=== PATIENT | female | born 1950 | race Caucasian/White ===

== ENCOUNTER 2018-06-19 09:20 | Emergency (ER) | payer MEDICARE, BC ==
--- NOTE | 2018-06-19 09:32 | EDM.PDOC ---
ED HPI GENERAL MEDICAL PROBLEM - General Chief Complaint: Neuro Symptoms/Deficits Stated Complaint: FROM CLINIC Time Seen by Provider: 06/19/18 09:32 Source of Information: Reports: Patient, Old Records, RN, RN Notes Reviewed History Limitations: Reports: No Limitations - History of Present Illness INITIAL COMMENTS - FREE TEXT/NARRATIVE: Pt sent from clinic by Lisa RUELAS for evaluation of possible stroke vs Rivera's Palsy to right face. Pt states she was well when she went to bed last night, and woke with the corner of the Rt side of the mouth drooping. She reports a slight numbness to the area. It does not affect the eye or forehead. She felt her speech was slightly slurred when she first woke, but it returned to normal within an hour of waking. She denies headache, visual changes, swallowing difficulty, lateralized motor or sensory deficits, or any other symptoms. 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 Onset: Today Onset Date: 06/19/18 (Woke with Sx's. Last known well at bedtime last night ( approx. 10PM)) Duration: Constant Location: Reports: Face Quality: Reports: Other (denies pain) Severity: Moderate Improves with: Reports: None Worsens with: Reports: None Associated Symptoms: Reports: No Other Symptoms - Related Data Allergies Allergy/AdvReac Type Severity Reaction Status Date / Time No Known Allergies Allergy Verified 06/19/18 09:30 Home Meds: Home Meds Albuterol Sulfate [Proair Hfa] 8.5 gm IH ASDIRECTED 02/25/15 [History] Benazepril HCl 20 mg PO DAILY 02/25/15 [History] Ipratropium/Albuterol Sulfate [Iprat-Albut 0.5-3(2.5) MG/3 ML] 1 dose INH ASDIRECTED PRN 02/25/15 [History] Levothyroxine Sodium 50 mcg PO DAILY 02/25/15 [History] Mometasone Furoate [Asmanex] 1 puff INH DAILY 02/25/15 [History] Montelukast Sodium 10 mg PO DAILY 02/25/15 [History] Triamterene/Hydrochlorothiazid [Triamterene-HCTZ 37.5-25 MG] 1 tab PO DAILY [History] Past Medical History HEENT History: Reports: Impaired Vision Cardiovascular History: Reports: Hypertension Respiratory History: Reports: Asthma, COPD Neurological History: Reports: CVA (Left ocular CVA), TIA Endocrine/Metabolic History: Reports: Hypothyroidism Social & Family History - Family History Neurological: Reports: CVA (Father of CVA) - Tobacco Use Smoking Status *Q: Former Smoker Tobacco Use Within Last Twelve Months: Cigarettes Years of Tobacco use: 10 Second Hand Smoke Exposure: No - Alcohol Use Alcohol Use History: No - Living Situation & Occupation Occupation: Retired ED ROS GENERAL - Review of Systems Review Of Systems: ROS reveals no pertinent complaints other than HPI. ED EXAM, NEURO - Physical Exam Exam: See Below Exam Limited By: No Limitations General Appearance: Alert, WD/WN, No Apparent Distress Eye Exam: Left Eye: Abnormal Pupil (chronic), Bilateral Eye: EOMI Ears: Normal External Exam, Normal Canal, Hearing Grossly Normal, Normal TMs Nose: Normal Inspection, Normal Mucosa, No Blood Throat/Mouth: Normal Lips, Normal Gums, Normal Oropharynx, Normal Voice, No Airway Compromise, Other (no intraoral swelling or lesions). No: Normal Teeth ( dentures), Inflammation Head Exam: Atraumatic, Normocephalic, Facial Swelling (mild swelling of Rt mandibular face near the angle of the mouth), Other (no erythema, no rash or skin lesions, no tenderness). No: Facial Tenderness Neck: Normal Inspection, Supple, Non-Tender, Full Range of Motion. No: Lymphadenopathy (L), Lymphadenopathy (R) Respiratory/Chest: No Respiratory Distress, Lungs Clear, Normal Breath Sounds, No Accessory Muscle Use, Chest Non-Tender Cardiovascular: Normal Peripheral Pulses, Regular Rate, Rhythm, No Edema, No Gallop, No JVD, No Murmur, No Rub GI/Abdominal: Normal Bowel Sounds, Soft, Non-Tender, No Distention (Female) Exam: Deferred Rectal (Female) Exam: Deferred Neurological: Alert, Normal Mood/Affect, Normal Dorsiflexion, Normal Plantar Flexion, Normal Gait, No Motor/Sensory Deficits, Oriented x 3, Abnormal Sensation (subjective partial numbness to Rt mandibular face near angle of the mouth), Abnormal Motor (Rt lower face droop, does not effect the Rt periorbital face or forehead) Back Exam: Normal Inspection Extremities: Normal Inspection, Normal Range of Motion, Non-Tender, No Pedal Edema, Normal Capillary Refill Psychiatric: Normal Affect, Normal Mood Skin Exam: Warm, Dry, Intact, Normal Color, No Rash EKG INTERPRETATION EKG Date: 06/19/18 Time: 10:38 Rhythm: Other (SR) Rate (Beats/Min): 69 [place]: Normal P-Wave: Present QRS: Normal ST-T: Depressed (2mm or less in inf. & lat. leads) QT: Normal Comparison: NA - No Prior EKG Course - Vital Signs Last Recorded V/S: Last Vital Signs Temp 36.4 C 06/19/18 09:27 Pulse 96 06/19/18 09:27 Resp 16 06/19/18 09:27 BP 146/82 H 06/19/18 09:40 Pulse Ox 100 06/19/18 09:27 - Orders/Labs/Meds Orders: Active Orders 24 hr Category Date Time Status EKG 12 Lead [EKG Documentation Completion] [RC] STAT Care 06/19/18 10:05 Active Labs: Laboratory Tests 06/19/18 06/19/18 06/19/18 Range/Units 10:19 10:19 10:19 WBC 5.4 (5.0-10.0) 10^3/uL RBC 3.82 L (4.2-5.4) 10^6/uL Hgb 11.8 L D (12.0-16.0) g/dL Hct 34.6 L (37.0-47.0) % MCV 90.6 (80-100) fL MCH 30.9 (27.0-34.0) pg MCHC 34.1 (33.0-35.0) g/dL Plt Count 298 D (150-450) 10^3/uL Neut % (Auto) 73.6 (42.2-75.2) % Lymph % (Auto) 18.8 L (20.5-50.1) % [place] % (Auto) 6.3 (2-8) % Eos % (Auto) 0.9 L (1.0-3.0) % Baso % (Auto) 0.4 (0.0-1.0) % Sodium 131 L (135-145) mmol/L Potassium 3.4 L (3.6-5.0) mmol/L Chloride 98 L (101-111) mmol/L Carbon Dioxide 23.0 (21.0-31.0) mmol/L Anion Gap 13.4 BUN 12 (7-18) mg/dL Creatinine 0.8 (0.6-1.3) mg/dL Est Cr Clr Drug Dosing 57.99 mL/min Estimated GFR (MDRD) > 60 BUN/Creatinine Ratio 15.00 Glucose 102 (74-105) mg/dL Calcium 9.5 (8.4-10.2) mg/dl Total Bilirubin 0.9 (0.2-1.0) mg/dL AST 24 (10-42) IU/L ALT 14 (10-60) IU/L Alkaline Phosphatase 55 (42-121) IU/L Troponin I (0.00-0.02) ng/ml C-Reactive Protein 0.7 (0.0-1.3) mg/dL Total Protein 7.6 (6.7-8.2) g/dl Albumin 4.6 (3.2-5.5) g/dl Globulin 3.0 Albumin/Globulin Ratio 1.53 08/18 Range/Units 10:19 WBC (5.0-10.0) 10^3/uL RBC (4.2-5.4) 10^6/uL Hgb (12.0-16.0) g/dL Hct (37.0-47.0) % MCV (80-100) fL MCH (27.0-34.0) pg MCHC (33.0-35.0) g/dL Plt Count (150-450) 10^3/uL Neut % (Auto) (42.2-75.2) % Lymph % (Auto) (20.5-50.1) % [place] % (Auto) (2-8) % Eos % (Auto) (1.0-3.0) % Baso % (Auto) (0.0-1.0) % Sodium (135-145) mmol/L Potassium (3.6-5.0) mmol/L Chloride (101-111) mmol/L Carbon Dioxide (21.0-31.0) mmol/L Anion Gap BUN (7-18) mg/dL Creatinine (0.6-1.3) mg/dL Est Cr Clr Drug Dosing mL/min Estimated GFR (MDRD) BUN/Creatinine Ratio Glucose (74-105) mg/dL Calcium (8.4-10.2) mg/dl Total Bilirubin (0.2-1.0) mg/dL AST (10-42) IU/L ALT (10-60) IU/L Alkaline Phosphatase (42-121) IU/L Troponin I < 0.02 (0.00-0.02) ng/ml C-Reactive Protein (0.0-1.3) mg/dL Total Protein (6.7-8.2) g/dl Albumin (3.2-5.5) g/dl Globulin Albumin/Globulin Ratio - Radiology Interpretation Free Text/Narrative:: CT Head w/out contrast: no acute I.C. hemorrhage, chronic microvascular changes , tiny lacunar type infarcts in the posterior patel of both external capsules, with no acute appearing changes per Rad. report. - Re-Assessments/Exams Free Text/Narrative Re-Assessment/Exam: 06/19/18 12:25 Pt declines ambulance transfer, but is willing to transfer directly to [facility] ER by POV. Pt is aware and accepts the risks of POV transfer, but chooses to proceed. Departure - Departure Time of Disposition: 12:32 Disposition: DC/Tfer to Acute Hospital 02 Condition: Serious Clinical Impression: Mouth droop due to facial weakness - Discharge Information Forms: ED Department Discharge, Interfacility Transfer EMTALA - My Orders Last 24 Hours: My Active Orders 06/19/18 10:05 EKG 12 Lead [EKG Documentation Completion] [RC] STAT - Assessment/Plan Last 24 Hours: My Active Orders 06/19/18 10:05 EKG 12 Lead [EKG Documentation Completion] [RC] STAT
[2018-06-19 09:41] VITALS: BP 146/82
--- NOTE | 2018-06-19 10:30 | CT ---
CLINICAL HISTORY: 67-year-old female emergency department with right facial droop. (History "Rivera's p alsy"). Rule out CVA. Patient reported on 26 February 2015 exam to have "a few scattered lacuna". SCAN TECHNIQUE: Volume acquisition of data from an emergency unenhanced CT scan of the head and brain obtained while the patient was lying supine on the Siemens multislice CT scanner [place], [place]. All data archived in the PACS system for storage, reformatting axial/sa gittal/coronal planes and study. INTERPRETATION: 1. Uniformly thick bony calvarium without sign of skull fracture or underlying brain contusion or epi dural/subdural hematoma. 2. Symmetric clear pneumatization of the paranasal and mastoid sinuses. No sign of tumor mass, fractu re or inflammatory changes. 3. Symmetric mild age-appropriate atrophy. Underlying mirror-image normal ventricular system. No hydr ocephalus. 4. No new supratentorial or posterior fossa mass lesion. Cerebellum and brainstem unremarkable. Physi ologic pineal calcification. 5. Tiny lacunar type infarcts identified respectively in the posterior limb of both external capsules . No new evidence microvascular ischemic change, cerebral infarct or encephalomalacia. CONCLUSION: No new intracranial abnormalities appreciated since February 2015 exam.
[2018-06-19 10:45] LABS: ANION GAP 13.4; CHLORIDE,CL 98 mmol/L (101-111); SODIUM,NA 131 mmol/L (135-145)
--- NOTE | 2018-06-21 13:01 | EKG ---
06/19/2018 - DONTE WEBB 12-lead EKG shows normal sinus rhythm with no significant ST elevation or ST depression except for nonspecific ST-T wave changes noted on lead V2, V3, and V4. Recommend repeating the EKG. [facility] /[id number]
== END 2018-06-19 12:37 ==
LOC: DL.ED 09:20
DX: R29.810 Facial weakness (principal); I10 Essential (primary) hypertension; J44.9 Chronic obstructive pulmonary disease, unspecified; Z87.891 Personal history of nicotine dependence; Z79.899 Other long term (current) drug therapy
CPT/HCPCS: 36415; 70450; 80053; 84484; 85025; 86140; 93005; 93010; 99284; 99285